=== PATIENT | male | born 1985 | race Caucasian/White ===

== ENCOUNTER 2023-07-05 09:23 | Emergency (ER) | payer OTHER ==
[2023-07-05] MEDS ORDERED: Ciprofloxacin 0.3% Ophth Soln 2.5 ML Bottle ONE (10:35)
== END 2023-07-05 10:39 | disposition home or self-care (01) ==
LOC: LB.ED 09:23
DX: H10.31 Unspecified acute conjunctivitis, right eye (principal); Z87.891 Personal history of nicotine dependence
CPT/HCPCS: 99283; A9270-GY